=== PATIENT | female | born 1945 | race Caucasian/White ===

== ENCOUNTER 2024-04-09 03:43 | Emergency (ER) | payer MEDICARE, SELFPAY ==
[2024-04-09 04:08] VITALS: BP 179/91; PULSE 86; RESP 20; TEMP 36.6; O2SAT 97; BMI 29.0
[2024-04-09 04:36] VITALS: BP 179/91; PULSE 79; RESP 18; O2SAT 98
[2024-04-09 05:04] LABS: Bilirubin Urine Negative (Negative); Blood Urine 2+ (Negative); Glucose Urine UA Negative (Normal); Ketones Urine Negative (Negative); Leukocyte Esterase Urine 3+ (Negative); Nitrate Urine Negative (Negative); Protein Urine Trace (Negative); Specific Gravity, Urine 1.006 (1.005-1.030); Urine Appearance Turbid (CLEAR); Urine Color Yellow (Yellow)
[2024-04-09 05:09] LABS: Bacteria Urine 4+ /hpf; Hyaline Casts Urine 2.46 /lpf; Squamous Epithelial Cell Urine 21-50 /hpf (0-5); WBC Urine >100 /hpf (0-5)
--- NOTE | 2024-04-09 05:12 | XRR_ITS ---
PROCEDURE INFORMATION: Exam: XR Right Knee Exam date and time: 04/09/2024 5:19 AM Age: 78 years old Clinical indication: Right; Prior surgery; Surgery date: 6+ months; Surgery type: Tka; Patient HX: C/O RT knee and RT foot pain after her large size dog ran into her knee and stepped on her foot. ; Additional info: R knee inj TECHNIQUE: Imaging protocol: Radiologic exam of the right knee. Views: 3 views. COMPARISON: CR (LOW EXM, ) 04/09/2024 5:19 AM FINDINGS: Bones/joints: No fracture or dislocation is appreciated. There are postoperative changes status post right knee replacement. Components appear to be in anatomic alignment. Bony mineralization is normal. There is no evidence of a significant joint effusion. Soft tissues: Normal. XR/XR knee RT 3V* [id number] IMPRESSION: 1. Postoperative changes status post right knee replacement.
--- NOTE | 2024-04-09 05:12 | XRR_ITS ---
PROCEDURE INFORMATION: Exam: XR Right Foot Exam date and time: 04/09/2024 5:19 AM Age: 78 years old Clinical indication: Right; Patient HX: C/O RT knee and RT foot pain after her large size dog ran into her knee and stepped on her foot. ; Additional info: R foot inj and pain TECHNIQUE: Imaging protocol: Radiologic exam of the right foot. Views: 3 or more views. COMPARISON: CR XR knee RT 3V* [id number] 04/09/2024 5:19 AM FINDINGS: Bones/joints: No fracture or dislocation is appreciated. Joint spaces are relatively well preserved. Bony mineralization is slightly decreased. Soft tissues: No focal soft tissue swelling is identified. XR/XR foot RT min 3V* [id number] IMPRESSION: 1. No definite fracture identified.
[2024-04-09 05:20] LABS: UA Slide Review UA Slide Review Perf
[2024-04-09 05:31] LABS: Basophils % 0.9 %; Eosinophils # 0.1 10^3/uL (0.0-0.8); Eosinophils % 3.2 %; Hematocrit 41.3 % (36-47); Lymphocytes # 0.9 10^3/uL (0.8-4.8); Lymphocytes % 25.6 %; Mean Corpuscular HGB Conc 32.4 g/dL (30-55); Mean Corpuscular Hemoglobin 28.6 pg (27-33); Mean Corpuscular Volume 88.2 fl (85-98); Mean Platelet Volume 10.2 fL (7.4-10.4); Monocytes # 0.2 10^3/uL (0.2-0.9); Monocytes % 5.5 %; Neutrophils # 2.24 10^3/uL (1.8-7.7); Neutrophils % 64.2 %; Nucleated Red Blood Cells % 0 %; Platelet Count 67 10^3/cmm (157-399); Red Blood Count 4.68 10^6/uL (3.85-5.65); Red Cell Distribution Width 15.7 % (12.1-15.1); White Blood Count 3.48 10^3/uL (3.29-11.43)
[2024-04-09 05:50] LABS: Alanine Aminotransferase 18 U/L (0-33); Albumin Level 3.5 g/dL (3.5-5.2); Alkaline Phosphatase 115 U/L (35-105); Anion Gap 13.1 (5-19); Aspartate Amino Transferase 40 U/L (0-32); Blood Urea Nitrogen 6 mg/dL (8-23); Calcium 8.8 mg/dL (8.5-10.5); Carbon Dioxide 26 mmol/L (22-29); Chloride 105 mmol/L (98-107); Creatinine Clr Calc Pharmacy 60.4198; Glucose 124 mg/dL (65-115); Osmolality Calculated 291 mOsm/kg (285-295); Potassium 3.1 mmol/L (3.5-5.1); Sodium 141 mmol/L (136-145); Total Bilirubin 1.2 mg/dL (0.15-1.2); Total Protein 7.5 g/dL (6.6-8.7)
--- NOTE | 2024-04-09 05:52 | ED_ITS ---
HPI - Trauma 2 General: Chief Complaint: Trauma Stated Complaint: Foot Swollen\Bladder Infection\Gums Black Time Seen by Provider: 04/09/24 04:55 History of Present Illness: 78 year old female presenting after joel schumacher caught in the middle of her two dogs playing. Her right knee, which is status post arthroplasty, was swept out from under her period she complaints of medial knee pain, and of foot pain. She is not sure, but believes one of the dogs may have stepped on her foot. She also reports several scratches, one on her nose that is a couple of weeks old and one on her arm, that don't seem to want to heal, and continue to bleed when uncovered. She is on no medications. She has not seen a doctor recently. Related Data Previous Rx's Medication Instructions Recorded cefdinir 300 mg capsule 300 mg PO BID #14 caps 04/09/24 tramadol 50 mg tablet 50 mg PO Q8H PRN pain #10 tabs 04/09/24 Physical Exam 2 Const: COMMON NORMALS: no acute distress GENERAL APPEARANCE: cooperative and frail appearing (mildly); not ill appearing HENMT: COMMON NORMALS: normocephalic HEAD & SCALP: normocephalic NOSE: A bnormal external nose present (lesion to tip of nose. appears to be abrasion. potential pyogenic granuloma) Eye: COMMON NORMALS: Equal, round and reactive pupils present and EOMs intact bilaterally PUPIL: Yes Equal, round and reactive pupils present Neck/C-Spine: GENERAL: Yes trachea midline Chest: CHEST: Yes Symmetrical chest wall rise Resp: COMMON NORMALS: normal respiratory effort, No retractions and No use of accessory muscles Cardio: COMMON NORMALS: regular rate and regular rhythm RATE: regular rate RHYTHM: regular rhythm GI: INSPECTION: Yes abdominal wall ecchymosis (small. no fluctuance) Extremity: NARRATIVE EXTREMITY EXAM: Examination of the right lower extremity reveals tenderness over the MCL in the medial joint line. There is no significant knee joint effusion. There is pain with range of motion, which is intact. No deformity. The right foot reveals soft tissue swelling come up mild redness. No streaking. No deformity. Pulses are intact distally. Sensation is normal. Neuro: STEPH COMA SCALE: document GCS findings [place] coma scale eye opening: Spontaneous Steph coma scale verbal response: Orientated [place] coma scale motor response: Obey commands [place] coma scale total score: 15 S ENSORY EXAM: Yes extremities (intact) Psych: COMMON NORMALS: speech normal SPEECH: Yes normal speech Course 2 Vital Signs: Vital signs: Vital Signs Temperature 97.8 F 04/09/24 04:08 Pulse Rate 77 04/09/24 06:27 Respiratory Rate 16 04/09/24 06:27 Blood Pressure 145/82 04/09/24 06:27 Pulse Oximetry 98 04/09/24 06:27 Oxygen Delivery Me thod Room Air 04/09/24 04:36 MDM - Trauma Medical Decision Making This patient has a low normal white blood cell count. She has a platelet count of 67. She has no history of liver disease. Her potassium is 3.1. X-ray reveals no fracture. There is some soft tissue swelling. Knee X-ray does not reveal fracture or problem with prosthesis. She likely has a mild MCL sprain based on her point of tenderness. She'll be placed in a new immobilizer for no longer than five days. She was told to get a hinged sports knee brace following that. She does have a primary care physician they have not seen yet. She was encouraged to follow up with this person regarding both the knee injury and the thrombocytopenia, which is likely the cause of her skin lesions continuing to bleed. This will require further outpatient workup. She is encouraged to have a repeat CBC done later this coming week. Lab Data 04/09/24 05:23 04/09/24 05:23 Radiology Impressions Foot X-Ray 04/09/24 05:12 IMPRESSION: 1. No definite fracture identified. Knee X-Ray 04/09/24 05:12 IMPRESSION: 1. Postoperative changes status post right knee replacement. Laboratory Results WBC 3.48 10^3/uL (3.29-11.43) 04/09/24 05:23 RBC 4.68 10^6/uL (3.85-5.65) 04/09/24 05:23 Hgb 13.40 g/dL (11.27-16.99) 04/09/24 05:23 Hct 41.3 % (36-47) 04/09/24 05:23 MCV 88.2 fl (85-98) 04/09/24 05:23 MCH 28.6 pg (27-33) 04/09/24 05:23 MCHC 32.4 g/dL (30-55) 04/09/24 05:23 RDW 15.7 % (12.1-15.1) H 04/09/24 05:23 Plt Count 67 10^3/cmm (157-399) L 04/09/24 05:23 MPV 10.2 fL (7.4-10.4) 04/09/24 05:23 Neut % (Auto) 64.2 % 04/09/24 05:23 Lymph % (Auto) 25.6 % 04/09/24 05:23 [place] % (Auto) 5.5 % 04/09/24 05:23 Eos % (Auto) 3.2 % 04/09/24 05:23 Baso % (Auto) 0.9 % 04/09/24 05:23 Neut # (Auto) 2.24 10^3/uL (1.8-7.7) 04/09/24 05:23 Lymph # (Auto) 0.9 10^3/uL (0.8-4.8) 04/09/24 05:23 [place] # (Auto) 0.2 10^3/uL (0.2-0.9) 04/09/24 05:23 Eos # (Auto) 0.1 10^3/uL (0.0-0.8) 04/09/24 05:23 Baso # (Auto) 0.0 10^3/uL (0.0-0.1) 04/09/24 05:23 Nucleated RBC % (auto) 0 % 04/09/24 05:23 Nucleated RBCs # 0.0 /100WBC 04/09/24 05:23 Sodium 141 mmol/L (136-145) 04/09/24 05:23 Potassium 3.1 mmol/L (3.5-5.1) L 04/09/24 05:23 Chloride 105 mmol/L (98-107) 04/09/24 05:23 Carbon Dioxide 26 mmol/L (22-29) 04/09/24 05:23 Anion Gap 13.1 (5-19) 04/09/24 05:23 BUN 6 mg/dL (8-23) L 04/09/24 05:23 Creatinine 0.8 mg/dL (0.5-0.9) 04/09/24 05:23 GFR Calculation Not Reportable 04/09/24 05:23 Glucose 124 mg/dL (65-115) H 04/09/24 05:23 Calculated Osmolality 291 mOsm/kg (285-295) 04/09/24 05:23 Calcium 8.8 mg/dL (8.5-10.5) 04/09/24 05:23 Total Bilirubin 1.2 mg/dL (0.15-1.2) 04/09/24 05:23 AST 40 U/L (0-32) H 04/09/24 05:23 ALT 18 U/L (0-33) 04/09/24 05:23 Alkaline Phosphatase 115 U/L (35-105) H 04/09/24 05:23 Total Protein 7.5 g/dL (6.6-8.7) 04/09/24 05:23 Albumin 3.5 g/dL (3.5-5.2) 04/09/24 05:23 Globulin 4.0 g/dL (1.3-4.6) 04/09/24 05:23 Urine Color Yellow (Yellow) 04/09/24 04:53 Urine Appearance Turbid (CLEAR) A 04/09/24 04:53 Urine pH 6.0 (5-7) 04/09/24 04:53 Ur Specific [place] 1.006 (1.005-1.030) 04/09/24 04:53 Urine Protein Trace (Negative) A 04/09/24 04:53 Urine Glucose (UA) Negative (Normal) 04/09/24 04:53 Urine Ketones Negative (Negative) 04/09/24 04:53 Urine Blood 2+ (Negative) A 04/09/24 04:53 Urine Nitrate Negative (Negative) 04/09/24 04:53 Urine Bilirubin Negative (Negative) 04/09/24 04:53 Urine Urobilinogen 1.0 mg/dL (Negative) 04/09/24 04:53 Ur Leukocyte Esterase 3+ (Negative) A 04/09/24 04:53 Urine RBC 3-5 /hpf (0-2) 04/09/24 04:53 Urine WBC >100 /hpf (0-5) H 04/09/24 04:53 Ur Squamous Epith Cells 21-50 /hpf (0-5) 04/09/24 04:53 Amorphous Sediment Not Reportable 04/09/24 04:53 Urine Bacteria 4+ /hpf (NONE) H 04/09/24 04:53 Hyaline Casts 2.46 /lpf 04/09/24 04:53 All radiology interpretation(s) finalized by discharge Discharge Plan Discharge Patient Disposition: Home Clinical Impression: MCL sprain of right knee, Contusion of foot, right, Acute UTI, Thrombocytopenia Condition: Stable Prescriptions: New cefdinir 300 mg capsule 300 mg PO BID Qty: 14 0RF tramadol 50 mg tablet 50 mg PO Q8H PRN (Reason: pain) Qty: 10 0RF Discharge Orders: Discharge ED (Routine); Ordered 04/09/24 Ordered By: Marciano Harris Referrals: Loren Aguilera MD [Staff Physician] - 4-7 days Patient Instructions: Knee Sprain (ED), Contusion in Adults (ED), Thrombocytopenia (ED), Urinary Tract Infection in Older Adults (ED), Opioid Safety, Pain Management Activity Restrictions/Additional Instructions: Antibiotics as directed for urinary tract infection. Your platelet count (clotting cell) count is low. This blood test needs to be repeated in a week's time or so to ensure it is improving. If not, more outpatient tests may be needed. If your right knee is feeling unstable, wear the knee immobilizer for up to 5 days. You should be seen for follow-up. A hinged knee brace following this should allow movement while the ligament heals. Return for fever despite 2-3 doses of antibiotics, vomiting liquids or medications, mental status changes, worsening pain, any other concerning symptoms. Coding Level of Care Code ED Well Cleaner for Ariane Ziegler
[2024-04-09] MEDS: cefdinir 300 MG CAPSULE PO (06:19)
[2024-04-09 06:27] VITALS: BP 145/82; PULSE 77; RESP 16; O2SAT 98
== END 2024-04-09 06:21 | disposition home or self-care (01) ==
PROVIDERS: Emergency Provider Emergency Medicine
DX: S83.411A Sprain of medial collateral ligament of right knee, initial encounter (principal); S90.31XA Contusion of right foot, initial encounter; N39.0 Urinary tract infection, site not specified; D69.6 Thrombocytopenia, unspecified; Z96.651 Presence of right artificial knee joint; W54.1XXA Struck by dog, initial encounter
CPT/HCPCS: 29530; 36415; 73562; 73630; 80053; 81001; 85025; 99284

== ENCOUNTER 2024-04-15 11:01 | Emergency (ER) | payer MEDICARE, SELFPAY ==
[2024-04-15 11:11] VITALS: BP 177/108; PULSE 80; RESP 16; TEMP 36.9; O2SAT 97; BMI 29.0
--- NOTE | 2024-04-15 11:12 | XRR_ITS ---
PROCEDURE INFORMATION: Exam: XR Right Foot Exam date and time: 04/15/2024 11:22 AM Age: 78 years old Clinical indication: Pain; Patient HX: PT presents with redness and swelling to right foot. Patient has bruising and redness to dorsal side of right foot. Patient denies mechanism of injury. Patient states it has progressively worse over the last week. Patient states they are working on their home and areas where critters can come in. patient denies fever. Patent airway, unlabored respirations, and appropriate color. ; Additional info: Pain/swelling TECHNIQUE: Imaging protocol: Radiologic exam of the right foot. Views: 3 or more views. Total images: 3 COMPARISON: CR (LOW EXM, ) 04/09/2024 5:19 AM FINDINGS: Bones/joints: Osteopenia no acute fracture or dislocation evident. Posterior calcaneal spurring at the attachment of the Achilles tendon. Benign-appearing periosteal reaction along the ulnar aspect of the shaft of the right 4th metatarsal. Soft tissues: Soft tissue swelling on the dorsum of the mid and forefoot. XR/XR foot RT min 3V* [id number] IMPRESSION: 1. No acute osseous abnormality identified.
--- NOTE | 2024-04-15 11:40 | ED_ITS ---
HPI - Extremity Problem 2 General: Chief complaint: Extremity Problem,Nontraumatic Stated complaint: right foot swollen Time Seen by Provider: 04/15/24 11:12 History of Present Illness: 78-year-old female presents with redness and irritation between third and fourth toes extending proximally on the dorsum of the right foot. She was seen 6 days ago with some redness and slight swelling in that area x-ray was unremarkable there was only swelling at that time and no redness. Patient states she pulled out something like a sliver from between her toes central to where this began. It is not had any drainage. Associated symptoms: Deny chest pain, fever(s) or rash Related Data Previous Rx's Medication Instructions Recorded cefdinir 300 mg capsule 300 mg PO BID #14 caps 04/09/24 clindamycin HCl 300 mg capsule 300 mg PO TID 7 days #21 caps 04/18/24 Allergies Allergy/AdvReac Type Severity Reaction Status Date / Time tomato Allergy ALGY-Anaphy Verified 04/20/24 11:21 laxis Review of Systems 2 Const: Denies: fever(s) or chills Card: Denies: chest pain Resp: Denies: dyspnea GI: Denies: abdominal pain : Denies: dysuria, urinary frequency or urinary urgency Musc: Denies: neck pain or back pain Skin/Breast: Denies: rash PFSH ED 2 PFSH: Social History Smoking and tobacco/nicotine status: never used tobacco/nicotine Physical Exam 2 Const: GENERAL APPEARANCE: cooperative ORIENTATION/CONSCIOUSNESS: Yes awake, Yes oriented to person, Yes oriented to place and Yes oriented to time HENMT: COMMON NORMALS: normocephalic, atraumatic and hearing grossly normal bilaterally HEAD & SCALP: normocephalic and atraumatic Resp: COMMON NORMALS: normal respiratory effort, No retractions, No use of accessory muscles and clear to auscultation bilaterally AUSCULTATION: clear to auscultation bilaterally Cardio: COMMON NORMALS: regular rate, regular rhythm and No murmurs present (Cardio) RATE: regular rate RHYTHM: regular rhythm GI: COMMON NORMALS: Soft to palpation and No hepatosplenomegaly present A USCULTATION: Yes normoactive bowel sounds PALPATION: Yes Soft to palpation, No Tenderness to palpation present (GI), No Guarding due to palpation present (GI) and Yes No hepatosplenomegaly present Extremity: COMMON NORMALS: normal to inspection, capillary refill normal, no clubbing, cyanosis or edema, no calf tenderness and no pedal edema Neuro: SENSORIUM/ORIENTATION: Yes oriented to person, Yes oriented to place and Yes oriented to time Skin: COMMON NORMALS: no rashes or lesions noted GENERAL SKIN EXAM: no rashes or lesions noted Course 2 Vital Signs: Vital signs: Vital Signs Temperature 98.5 F 04/15/24 11:11 Pulse Rate 68 04/15/24 12:49 Respiratory Rate 16 04/15/24 11:11 Blood Pressure 162/75 04/15/24 12:49 Pulse Oximetry 99 04/15/24 12:49 Oxygen Delivery Me thod Room Air 04/15/24 11:11 MDM - Extremity (Nontraumatic) Medical Decision Making Patient has mild cellulitis on dorsum of foot starting oral antibiotics elevate moist heat follow-up with primary care and return if has worsening symptoms Lab Data 04/15/24 11:56 04/15/24 11:56 Radiology Impressions Foot X-Ray 04/15/24 11:12 IMPRESSION: 1. No acute osseous abnormality identified. Laboratory Results WBC 2.98 10^3/uL (3.29-11.43) L 04/15/24 11:56 RBC 4.60 10^6/uL (3.85-5.65) 04/15/24 11:56 Hgb 13.50 g/dL (11.27-16.99) 04/15/24 11:56 Hct 40.8 % (36-47) 04/15/24 11:56 MCV 88.7 fl (85-98) 04/15/24 11:56 MCH 29.3 pg (27-33) 04/15/24 11:56 MCHC 33.1 g/dL (30-55) 04/15/24 11:56 RDW 15.4 % (12.1-15.1) H 04/15/24 11:56 Plt Count 71 10^3/cmm (157-399) L 04/15/24 11:56 MPV 9.6 fL (7.4-10.4) 04/15/24 11:56 Neut % (Auto) 62.1 % 04/15/24 11:56 Lymph % (Auto) 28.2 % 04/15/24 11:56 [place] % (Auto) 5.0 % 04/15/24 11:56 Eos % (Auto) 3.0 % 04/15/24 11:56 Baso % (Auto) 1.0 % 04/15/24 11:56 Neut # (Auto) 1.85 10^3/uL (1.8-7.7) 04/15/24 11:56 Lymph # (Auto) 0.8 10^3/uL (0.8-4.8) 04/15/24 11:56 [place] # (Auto) 0.2 10^3/uL (0.2-0.9) 04/15/24 11:56 Eos # (Auto) 0.1 10^3/uL (0.0-0.8) 04/15/24 11:56 Baso # (Auto) 0.0 10^3/uL (0.0-0.1) 04/15/24 11:56 Nucleated RBC % (auto) 0 % 04/15/24 11:56 Nucleated RBCs # 0.0 /100WBC 04/15/24 11:56 Sodium 142 mmol/L (136-145) 04/15/24 11:56 Potassium 3.1 mmol/L (3.5-5.1) L 04/15/24 11:56 Chloride 105 mmol/L (98-107) 04/15/24 11:56 Carbon Dioxide 27 mmol/L (22-29) 04/15/24 11:56 Anion Gap 13.1 (5-19) 04/15/24 11:56 BUN 6 mg/dL (8-23) L 04/15/24 11:56 Creatinine 0.8 mg/dL (0.5-0.9) 04/15/24 11:56 GFR Calculation Not Reportable 04/15/24 11:56 Glucose 123 mg/dL (65-115) H 04/15/24 11:56 Calculated Osmolality 293 mOsm/kg (285-295) 04/15/24 11:56 Calcium 8.8 mg/dL (8.5-10.5) 04/15/24 11:56 Total Bilirubin 1.3 mg/dL (0.15-1.2) H 04/15/24 11:56 AST 36 U/L (0-32) H 04/15/24 11:56 ALT 15 U/L (0-33) 04/15/24 11:56 Alkaline Phosphatase 125 U/L (35-105) H 04/15/24 11:56 Total Protein 7.6 g/dL (6.6-8.7) 04/15/24 11:56 Albumin 3.5 g/dL (3.5-5.2) 04/15/24 11:56 Globulin 4.1 g/dL (1.3-4.6) 04/15/24 11:56 All radiology interpretation(s) finalized by discharge Discharge Plan Discharge Patient Disposition: Home Clinical Impression: Cellulitis Qualifiers: Site of cellulitis: extremity Site of cellulitis of extremity: lower extremity Laterality: right Qualified Code(s): L03.115 - Cellulitis of right lower limb Condition: Stable Prescriptions: No Action clindamycin HCl 300 mg capsule 300 mg PO TID 7 Days Qty: 21 0RF cefdinir 300 mg capsule 300 mg PO BID Qty: 14 0RF Discharge Orders: Discharge ED (Routine); Ordered 04/15/24 Ordered By: Miguel Adkins Referrals: Loren Aguilera MD [Primary Care Provider] - Discharge Diet: Usual diet Discharge Activity: Increase activity as tolerated Patient Instructions: Opioid Safety, Pain Management Activity Restrictions/Additional Instructions: Thank you for choosing [facility] for your healthcare needs today. It is very important that you follow up as instructed or that you return to the Emergency Department should you have concerns or if your condition changes or worsens in any way. You are seen emergency room for redness in your foot. Your white count is slightly low which is similar to what has been in the past. The area of concern on your foot appears to be a mild cellulitis. Recommend you start doxycycline 1 pill twice a day for 7 days. Recheck if it is worsening. Coding Level of Care Code ED Cheese Processor for Ariane Ziegler
[2024-04-15 12:02] LABS: Eosinophils # 0.1 10^3/uL (0.0-0.8); Hematocrit 40.8 % (36-47); Lymphocytes # 0.8 10^3/uL (0.8-4.8); Lymphocytes % 28.2 %; Mean Corpuscular HGB Conc 33.1 g/dL (30-55); Mean Corpuscular Hemoglobin 29.3 pg (27-33); Mean Corpuscular Volume 88.7 fl (85-98); Mean Platelet Volume 9.6 fL (7.4-10.4); Monocytes # 0.2 10^3/uL (0.2-0.9); Neutrophils # 1.85 10^3/uL (1.8-7.7); Neutrophils % 62.1 %; Nucleated Red Blood Cells % 0 %; Platelet Count 71 10^3/cmm (157-399); Red Cell Distribution Width 15.4 % (12.1-15.1); White Blood Count 2.98 10^3/uL (3.29-11.43)
[2024-04-15 12:16] VITALS: PULSE 71; O2SAT 99
[2024-04-15 12:22] LABS: Alanine Aminotransferase 15 U/L (0-33); Albumin Level 3.5 g/dL (3.5-5.2); Alkaline Phosphatase 125 U/L (35-105); Anion Gap 13.1 (5-19); Aspartate Amino Transferase 36 U/L (0-32); Blood Urea Nitrogen 6 mg/dL (8-23); Calcium 8.8 mg/dL (8.5-10.5); Carbon Dioxide 27 mmol/L (22-29); Chloride 105 mmol/L (98-107); Creatinine Clr Calc Pharmacy 60.4198; Globulin 4.1 g/dL (1.3-4.6); Glucose 123 mg/dL (65-115); Osmolality Calculated 293 mOsm/kg (285-295); Potassium 3.1 mmol/L (3.5-5.1); Sodium 142 mmol/L (136-145); Total Bilirubin 1.3 mg/dL (0.15-1.2); Total Protein 7.6 g/dL (6.6-8.7)
[2024-04-15 12:49] VITALS: BP 162/75; PULSE 68; O2SAT 98; O2SAT 99
== END 2024-04-15 12:50 | disposition home or self-care (01) ==
PROVIDERS: Emergency Provider Family Medicine; PCP Family Medicine
DX: L03.115 Cellulitis of right lower limb (principal)
CPT/HCPCS: 36415; 73630; 80053; 85025; 99284

== ENCOUNTER → 2024-05-10 14:56 | Outpatient (BNVA) | payer MEDICARE, SELFPAY | DX: Z76.89 Persons encountering health services in other specified circumstances (principal) | CPT/HCPCS: 80053; 85025 ==

== ENCOUNTER → 2024-05-17 08:47 | Outpatient (BNVA) | payer MEDICARE, SELFPAY | PROVIDERS: Visit Provider Thoracic Surgery (Cardiothoracic Vascular Surgery) | DX: S01.21XD Laceration without foreign body of nose, subsequent encounter (principal); W20.8XXD Other cause of strike by thrown, projected or falling object, subsequent encounter; I96 Gangrene, not elsewhere classified; L97.511 Non-pressure chronic ulcer of other part of right foot limited to breakdown of skin | CPT/HCPCS: 97597; 99213; A6021 ==

== ENCOUNTER → 2024-06-16 11:01 | Outpatient (BNVA) | payer MEDICARE, SELFPAY | DX: S81.801A Unspecified open wound, right lower leg, initial encounter (principal) | CPT/HCPCS: 85025 ==

== ENCOUNTER → 2024-07-14 11:48 | Outpatient (BNVA) | payer MEDICARE, SELFPAY | PROVIDERS: Visit Provider Nurse Practitioner Family | DX: L98.9 Disorder of the skin and subcutaneous tissue, unspecified (principal) | CPT/HCPCS: 87070; 87077; 87186 ==

== ENCOUNTER 2024-07-31 12:06 | Oncology outpatient (recurring) (ONCR) | payer MEDICARE, SELFPAY ==
[2024-07-31 13:25] LABS: Basophils % 0.5 %; Eosinophils # 0.1 10^3/uL (0.0-0.8); Eosinophils % 3.3 %; Hematocrit 38.3 % (36-47); Lymphocytes # 0.6 10^3/uL (0.8-4.8); Lymphocytes % 29.3 %; Mean Corpuscular HGB Conc 32.4 g/dL (30-55); Mean Corpuscular Hemoglobin 28.8 pg (27-33); Mean Corpuscular Volume 88.9 fl (85-98); Mean Platelet Volume 9.6 fL (7.4-10.4); Monocytes # 0.1 10^3/uL (0.2-0.9); Monocytes % 3.7 %; Neutrophils # 1.35 10^3/uL (1.8-7.7); Neutrophils % 62.7 %; Nucleated Red Blood Cells % 0 %; Platelet Count 72 10^3/cmm (157-399); Red Blood Count 4.31 10^6/uL (3.85-5.65); Red Cell Distribution Width 15.1 % (12.1-15.1); White Blood Count 2.15 10^3/uL (3.29-11.43)
[2024-07-31 14:05] LABS: Alanine Aminotransferase 17 U/L (0-33); Albumin Level 3.5 g/dL (3.5-5.2); Alkaline Phosphatase 105 U/L (35-105); Anion Gap 10.4 (5-19); Aspartate Amino Transferase 47 U/L (0-32); Blood Urea Nitrogen 9 mg/dL (8-23); Calcium 9.2 mg/dL (8.5-10.5); Carbon Dioxide 28 mmol/L (22-29); Chloride 107 mmol/L (98-107); Creatinine Clr Calc Pharmacy 55.6003; Globulin 4.2 g/dL (1.3-4.6); Glucose 141 mg/dL (65-115); Osmolality Calculated 295 mOsm/kg (285-295); Potassium 3.4 mmol/L (3.5-5.1); Sodium 142 mmol/L (136-145); Thyroid Stimulating Hormone 2.17 uIU/mL (0.27-4.20); Total Bilirubin 1.3 mg/dL (0.15-1.2); Total Protein 7.7 g/dL (6.6-8.7); Vitamin B12 468 pg/mL (232-1245)
[2024-07-31 14:25] LABS: Folate Level 6.2 ng/mL (4.8-37.3)
[2024-07-31 14:26] LABS: Hepatitis A Antibody IgM Non-Reactive (Nonreactive); Hepatitis B Core AB, Total Non-Reactive (Nonreactive); Hepatitis B Surface AB < 3.5 (11.5-1000); Hepatitis B Surface Antigen Non-Reactive (Nonreactive); Hepatitis C Virus Antibody Non-Reactive (Nonreactive)
[2024-08-03 11:45] LABS: ALBUMIN 3.3 g/dL (3.8-4.8); ALPHA 1 GLOBULIN 0.3 g/dL (0.2-0.3); ALPHA 2 GLOBULIN 0.5 g/dL (0.5-0.9); BETA 1 GLOBULIN 0.4 g/dL (0.4-0.6); BETA 2 GLOBULIN 0.5 g/dL (0.2-0.5); GAMMA GLOBULIN 2.1 g/dL (0.8-1.7)
== END 2024-08-08 23:59 | disposition home or self-care (01) ==
LOC: ONCMED 12:07
PROVIDERS: Visit Provider Internal Medicine Medical Oncology
DX: D69.6 Thrombocytopenia, unspecified (principal); R53.83 Other fatigue; D70.9 Neutropenia, unspecified; C44.311 Basal cell carcinoma of skin of nose; T81.89XA Other complications of procedures, not elsewhere classified, initial encounter; X58.XXXA Exposure to other specified factors, initial encounter
CPT/HCPCS: 36415; 80053; 82607; 82746; 84155; 84165; 84443; 85025; 86334; 86705; 86706; 86709; 86803; 87340; 99205; 99213

== ENCOUNTER → 2024-08-07 10:41 | Outpatient (BNVA) | payer MEDICARE, SELFPAY | PROVIDERS: Visit Provider Nurse Practitioner Family | DX: C44.311 Basal cell carcinoma of skin of nose (principal); T81.89XA Other complications of procedures, not elsewhere classified, initial encounter; X58.XXXA Exposure to other specified factors, initial encounter; D48.5 Neoplasm of uncertain behavior of skin | CPT/HCPCS: 11102; 99213 ==

== ENCOUNTER 2024-08-08 09:50 | Outpatient (CLI) | payer MEDICARE, SELFPAY ==
--- NOTE | 2024-08-08 10:00 | USR_ITS ---
PROCEDURE INFORMATION: Exam: US Abdomen Complete Exam date and time: 08/08/2024 10:06 AM Age: 79 years old Clinical indication: Condition or disease; Other: Neutropenia, thrombocytopenia TECHNIQUE: Imaging protocol: Real-time ultrasound of the abdomen with image documentation. Complete exam. COMPARISON: No relevant prior studies available. FINDINGS: Liver: Coarsened hepatic echotexture with mildly nodular contour suggesting presence of hepatic cirrhosis. Gallbladder: Cholelithiasis. Gallbladder wall mildly thickened at 4 mm, nonspecific given presence of the liver pathology. No sonographic Ford's sign. Biliary ducts: Common bile duct not well visualized. No intrahepatic biliary dilatation seen. Pancreas: Visualized pancreas is unremarkable. Right kidney: Right kidney measures 9.2 cm in length. No calculus, solid mass, or obstruction. Renal echogenicity is within normal limits. Left kidney: Normal. No mass. No hydronephrosis. Spleen: Spleen enlarged measuring up to 16 cm in length. Aorta: Normal. No aneurysm. Inferior vena cava: Normal. Portal venous: Main portal vein demonstrates normal direction of flow and patency. US/US abdomen complete* [id number] IMPRESSION: 1. Cholelithiasis without evidence of acute cholecystitis. 2. Findings suggestive of hepatic cirrhosis. Presence of splenomegaly may indicate portal hypertension.
== END 2024-08-08 09:51 | disposition home or self-care (01) ==
LOC: RAD 09:52
PROVIDERS: Visit Provider Internal Medicine Medical Oncology
DX: D69.6 Thrombocytopenia, unspecified (principal); D70.9 Neutropenia, unspecified; K80.20 Calculus of gallbladder without cholecystitis without obstruction; R16.1 Splenomegaly, not elsewhere classified; R93.2 Abnormal findings on diagnostic imaging of liver and biliary tract; R93.89 Abnormal findings on diagnostic imaging of other specified body structures
CPT/HCPCS: 76700

== ENCOUNTER 2024-09-01 09:10 | Outpatient (CLI) | payer MEDICARE, SELFPAY ==
--- NOTE | 2024-09-01 09:16 | XR_ITS ---
WS: [id number] Right foot, AP and lateral views, 09/01/2024 Clinical Data: basal cell carcinoma of skin, unspecified Comparison: Right foot, 04/15/2024 Findings: No fractures or dislocations are seen. No bone destruction or erosion is noted. There is a bunion at the head of the right first metatarsal. There is benign periosteal reaction on the lateral aspect of the midshaft of the right fourth metatarsal unchanged. XR/XR [place] RT 2V [id number] Impression: Bunion of the head of the right first metatarsal.
== END 2024-09-01 09:11 | disposition home or self-care (01) ==
LOC: RAD 09:13
PROVIDERS: PCP Nurse Practitioner Family; Visit Provider Dermatology
DX: M86.68 Other chronic osteomyelitis, other site (principal); M21.611 Bunion of right foot; R93.6 Abnormal findings on diagnostic imaging of limbs
CPT/HCPCS: 73620; 87070; 87075; 87205

== ENCOUNTER 2024-09-12 09:19 | Oncology outpatient (recurring) (ONCR) | payer MEDICARE, SELFPAY ==
--- NOTE | 2024-09-12 09:30 | MR_ITS ---
WS: [id number] MRI/MRCP OF THE ABDOMEN WITHOUT GADOLINIUM ENHANCEMENT TECHNIQUE: Coronal T2 Fase BH, Axial T2 Fase BH, Axial T2 FS BH, Zxial 3D Jimenez BH, Axial DWI BH, 2D MRCP Radial BH, 3D MRCP (Resp), and Axial 3D Dyn BH Post sequences. CLINICAL INFORMATION: liver cirrhosis COMPARISON: None. FINDINGS: Cholelithiasis. No gallbladder wall thickening or pericholecystic fluid. Normal common bile duct. Normal pancreatic head. No hydronephrosis in either kidney. Normal caliber abdominal aorta. Tiny trace of perihepatic fluid. Slight nodular contour to the liver capsule. Small esophageal hiatal hernia. Mild hepatomegaly with enlargement of the RIGHT hepatic lobe. Tiny hepatic cyst in the RIGHT hepatic lobe measuring 5.6 mm. Splenomegaly with loss of the normal splenic contour measuring approximately 14 cm. Some images in the upper abdomen are degraded by motion. Portal-systemic collaterals visualized in the upper abdomen supportive of portal venous hypertension MR/MR abdomen wo/w con* [id number] Impression: 1. Slight nodular contour to the liver can be seen with cirrhosis. Associated splenomegaly with loss of the normal splenic contour. Recommend correlation adam er function tests. 2. In addition, portosystemic collaterals visualized in the upper abdomen supp ortive of portal venous hypertension. Splenorenal and splenogastric varicositie s. 3. Tiny cyst in the RIGHT hepatic lobe. 4. Small esophageal hiatal hernia. 5. Cholelithiasis. Normal common bile duct. 6. No other acute findings.
[2024-09-12] MEDS: gadobenate dimeglumine 20 mL vial 16 ML IV (10:05)
== END 2024-10-06 23:59 | disposition home or self-care (01) ==
PROVIDERS: PCP Nurse Practitioner Family; Visit Provider Internal Medicine Medical Oncology
DX: K74.60 Unspecified cirrhosis of liver (principal); D69.6 Thrombocytopenia, unspecified; K80.20 Calculus of gallbladder without cholecystitis without obstruction; K44.9 Diaphragmatic hernia without obstruction or gangrene; K76.89 Other specified diseases of liver; R16.1 Splenomegaly, not elsewhere classified; I86.8 Varicose veins of other specified sites
CPT/HCPCS: 74183

== ENCOUNTER → 2024-09-18 11:16 | Outpatient (BNVA) | payer MEDICARE, SELFPAY | PROVIDERS: PCP Nurse Practitioner Family; Visit Provider Dermatology | DX: L08.9 Local infection of the skin and subcutaneous tissue, unspecified (principal); K64.4 Residual hemorrhoidal skin tags | CPT/HCPCS: 99214 ==

== ENCOUNTER → 2024-09-20 14:20 | Outpatient (BNVA) | payer MEDICARE, SELFPAY | PROVIDERS: PCP Nurse Practitioner Family; Visit Provider Dermatology | DX: L08.9 Local infection of the skin and subcutaneous tissue, unspecified (principal) | CPT/HCPCS: 11104; 11622; 12042; 87015; 87070; 87102; 87116; 87176; 87205; 87206; 87801 ==

== ENCOUNTER → 2024-10-04 11:27 | Outpatient (BNVA) | payer MEDICARE, SELFPAY | PROVIDERS: PCP Nurse Practitioner Family; Visit Provider Dermatology | DX: L72.0 Epidermal cyst (principal) | CPT/HCPCS: 99213 ==

== ENCOUNTER 2024-10-10 11:58 | Outpatient (CLI) | payer MEDICARE, SELFPAY ==
--- NOTE | 2024-10-10 12:07 | MR_ITS ---
WS: [id number] EXAMINATION: MR foot RT wo/w con [id number] ORDER DATE: 10/10/2024 12:09 PM HISTORY: SUBACUTE OSTEOMYELITIS,R ANKLE FOOT TECHNIQUE: Sagittal T1, sagittal STIR, coronal PD, coronal T2, axial T1, axial T2, and axial PD imaging with fat saturation technique. Post gadolinium imaging includes axial T1, coronal T1, and sagittal T1 with fat saturation technique. FINDINGS: Diffuse soft tissue edema with enhancing superficial and deep soft tissues compatible with cellulitis. This is more prominent involving the dorsal midfoot with associated skin thickening. Edema extends into the intertarsal soft tissues. No evidence of drainable abscess or fluid collection. No evidence of osteomyelitis. Preservation of the normal T1 fatty bone marrow signal. Soft tissue edema enhancement worse involving the dorsal soft tissues third through fifth distal metatarsals and proximal phalanges. This is most prominent involving the third and fourth proximal phalanges extending along the extensor tendon sheaths. Normal navicular. Normal cuboid. Cuneiforms appear normal. No other acute findings. Bunion deformity. Degenerative arthritis first MTP. Narrowing of the DIP joints. Achilles calcaneal spurring. Osteopenia. MR/MR foot RT wo/w con [id number] IMPRESSION: 1. Cellulitis worse involving the dorsal soft tissues extending into the inter tarsal deep soft tissues. Edema and enhancement worse involving the third throu gh fifth intertarsal and phalangeal soft tissues 2. Soft tissue edema and enhancement worse involving the third and fourth prox imal phalanges extending along the dorsal tendon sheaths. 3. No evidence of drainable abscess or fluid collection. 4. No evidence of osteomyelitis. 5. Bunion deformity.
[2024-10-10] MEDS: gadobenate dimeglumine 20 mL vial 17 ML IV (12:50)
== END 2024-10-10 11:59 | disposition home or self-care (01) ==
PROVIDERS: PCP Nurse Practitioner Family; Visit Provider Dermatology
DX: M86.271 Subacute osteomyelitis, right ankle and foot (principal); L03.115 Cellulitis of right lower limb; M21.611 Bunion of right foot; R23.4 Changes in skin texture; M19.071 Primary osteoarthritis, right ankle and foot; R93.6 Abnormal findings on diagnostic imaging of limbs; M77.31 Calcaneal spur, right foot; M85.80 Other specified disorders of bone density and structure, unspecified site
CPT/HCPCS: 73720

== ENCOUNTER 2024-10-10 13:14 | Oncology outpatient (recurring) (ONCR) | payer MEDICARE, SELFPAY ==
--- NOTE | 2024-10-10 13:44 | N.ONRAD NP_ITS ---
Radiation Oncology New Patient Visit Patient: Chelsey Good MR#: [id number] : 1945> Age: 79> Sex: Female> Dictated by: Robe Robles Date of Service: 10/10/2024 Referring Physician(s) : Diagnosis: Radiotherapy to date: Summary > No prior radiation therapy. 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 Surgical History: Family History: Social History: Smoking and tobacco/nicotine status: never used tobacco/nicotine Current Complaints / Review of Systems: . Vital Signs: Performed on 10/10/2024 1:39 PM BMI - 27.503 kg/m2 (high), Height - 66 in, Weight - 170.4 lbs, Temperature - 97.7 f, Pulse - 101 /min (high), Respiration - 18 /min, O2 Sat - 97 %, Pain - 10, Fatigue - 0 and BP - 162/ 98 mm(hg)(high). Physical Exam: Performance Status: Pathology: Impression: Plan: Signed by: 10/10/2024 1:43:11 PM <<Signature on File>> Time spent with patient: CPT Code: * CPT Code: *
== END 2024-11-06 23:59 | disposition home or self-care (01) ==
PROVIDERS: PCP Nurse Practitioner Family; Visit Provider Radiology Radiation Oncology
DX: K74.60 Unspecified cirrhosis of liver (principal); D69.6 Thrombocytopenia, unspecified; K80.20 Calculus of gallbladder without cholecystitis without obstruction; K44.9 Diaphragmatic hernia without obstruction or gangrene; K76.89 Other specified diseases of liver; R16.1 Splenomegaly, not elsewhere classified; I86.8 Varicose veins of other specified sites

== ENCOUNTER → 2024-10-25 11:00 | Outpatient (BNVA) | payer MEDICARE, SELFPAY | PROVIDERS: PCP Nurse Practitioner Family; Visit Provider Dermatology | DX: L72.0 Epidermal cyst (principal); C44.311 Basal cell carcinoma of skin of nose; C44.319 Basal cell carcinoma of skin of other parts of face | CPT/HCPCS: 99214 ==

== ENCOUNTER → 2024-11-01 12:52 | Outpatient (BNVA) | payer MEDICARE, SELFPAY | PROVIDERS: PCP Nurse Practitioner Family; Visit Provider Obstetrics & Gynecology | DX: R30.0 Dysuria (principal) | CPT/HCPCS: 84315 ==

== ENCOUNTER → 2024-11-14 10:50 | Outpatient (BNVA) | payer MEDICARE, SELFPAY | PROVIDERS: PCP Nurse Practitioner Family; Visit Provider Obstetrics & Gynecology | DX: N81.10 Cystocele, unspecified (principal) | CPT/HCPCS: 76857 ==

== ENCOUNTER 2024-11-29 10:16 | Oncology outpatient (recurring) (ONCR) | payer MEDICARE, SELFPAY ==
--- NOTE | 2024-11-21 11:19 | ONCRAD TMN_ITS ---
Radiation Oncology Weekly Treatment Management Patient: Florentino Marmolejo MR#: [id number] : 1945> Attending Physician: Robe Robles Date of Service: 11/21/2024 Referring Physician(s) : Diagnosis: C44.01 - Basal cell carcinoma of skin of lip, Diagnosed 08/08/2024 (Active) C44.311 - Basal cell carcinoma of skin of nose, Diagnosed 08/08/2024 (Active) C44.319 - Basal cell carcinoma of skin of other parts of face, Diagnosed 08/08/2024 (Active) Radiotherapy to date: Course: Nose 2024, Treatment Site: Nose 6E 40Gy, Ref. ID: [id number], Energy: 6E, Dose/Fx (cGy): 400, #Fx: , Dose Correction (cGy): 0, Total Dose Delivered (cGy): 1,600, Start Date: 11/16/2024, Elapsed Days: 5 Reason for visit: The patient is being seen today as part of their regularly scheduled weekly on treatment visits to assess for acute toxicities from radiotherapy. Review of Systems: Consult reviewed treating nasal tip at this time Vital Signs: Performed on 11/21/2024 11:01 AM BMI - 28.601 kg/m2 (high), Height - 66 in, Weight - 177.2 lbs, Temperature - 97.7 f, Pulse - 88 /min, Respiration - 18 /min, O2 Sat - 98 %, Pain - 0, Fatigue - 0 and BP - 180/ 97 mm(hg)(high). Physical Exam: AAOx3. Crusting lesion of the nasal tip noted with some mild bleeding. Imaging: Radiation therapy imaging related to accurate target localization (i.e. KV, MV and CBCT) was reviewed. Appropriate changes, if any, were made to ensure treatment accuracy. Plan: Continue XRT Utilize Aquaphor liberally after treatment each day Signed by: Robe Robles 11/21/2024 11:17:16 AM
--- NOTE | 2024-11-28 16:40 | ONCRAD TMN_ITS ---
Radiation Oncology Weekly Treatment Management Patient: Chelsey Good MR#: [id number] : 1945 Attending Physician: Dr. William Dan Date of Service: 11/28/2024 Referring Physician(s) : Diagnosis: C44.01 - Basal cell carcinoma of skin of lip, Diagnosed 08/08/2024 (Active) C44.311 - Basal cell carcinoma of skin of nose, Diagnosed 08/08/2024 (Active) C44.319 - Basal cell carcinoma of skin of other parts of face, Diagnosed 08/08/2024 (Active) Radiotherapy to date: Course: Nose 2024, Treatment Site: Nose 6E 40Gy, Ref. ID: [id number], Energy: 6E, Dose/Fx (cGy): 400, #Fx: , Dose Correction (cGy): 0, Total Dose Delivered (cGy): 3,600, Start Date: 11/16/2024, Elapsed Days: 12 Reason for visit: The patient is being seen today as part of their regularly scheduled weekly on treatment visits to assess for acute toxicities from radiotherapy. Review of Systems: Some bleeding over tip and inside nose. Can see lesion shrinking. Vital Signs: Performed on 11/28/2024 10:30 AM BMI - 28.31 kg/m2 (high), Height - 66 in, Weight - 175.4 lbs, Temperature - 97.9 f, Pulse - 97 /min, Respiration - 18 /min, O2 Sat - 98 %, Pain - 0, Fatigue - 0 and BP - 185/ 100 mm(hg)(high). Physical Exam: Erythema over tip of nose. Some stable crusting over tip. Underyling erythema with no visible lesion. Imaging: Radiation therapy imaging related to accurate target localization (i.e. KV, MV and CBCT) was reviewed. Appropriate changes, if any, were made to ensure treatment accuracy. Plan: Good tolerance and response to treatment. Continue as planned. Signed by: Dr. William Dan 11/28/2024 4:39:45 PM
--- NOTE | 2024-11-29 13:27 | N.ONRD TS_ITS ---
Radiation Oncology Treatment Summary Patient: Chelsey Good MR#: [id number] : 1945 Age: 79 Sex: Female Dictated by: Dr. William Dan Date of Service: 11/29/2024 Referring Physician(s) : Diagnosis: C44.01 - Basal cell carcinoma of skin of lip, Diagnosed 08/08/2024 (Active) C44.311 - Basal cell carcinoma of skin of nose, Diagnosed 08/08/2024 (Active) C44.319 - Basal cell carcinoma of skin of other parts of face, Diagnosed 08/08/2024 (Active) Radiotherapy to Date: Course: Nose 2024, Treatment Site: Nose 6E 40Gy, Ref. ID: [id number], Energy: 6E, Dose/Fx (cGy): 400, #Fx: / , Dose Correction (cGy): 0, Total Dose Delivered (cGy): 4,000, Start Date: 11/16/2024, End Date: 11/29/2024, Elapsed Days: 13 Clinical Summary: The patient tolerated RT well. She did develop brisk erythema over nose, crusting and some bleeding over tip of nose and inside nose. Aquaphor and sunblock was advised. Plan: End of treatment today. Continue on the above medication until the skin reaction resolves. Follow up in two weeks. Signed by: Dr. William Dan>11/29/2024 1:26:28 PM <<Signature on File>>
== END 2024-12-06 23:59 | disposition home or self-care (01) ==
PROVIDERS: PCP Nurse Practitioner Family; Visit Provider Radiology Radiation Oncology
DX: K74.60 Unspecified cirrhosis of liver (principal); D69.6 Thrombocytopenia, unspecified; K80.20 Calculus of gallbladder without cholecystitis without obstruction; K44.9 Diaphragmatic hernia without obstruction or gangrene; K76.89 Other specified diseases of liver; R16.1 Splenomegaly, not elsewhere classified; I86.8 Varicose veins of other specified sites
CPT/HCPCS: 77280; 77290; 77295; 77300; 77334; 77336; 77412; 99024

== ENCOUNTER 2025-03-06 09:19 | Oncology outpatient (recurring) (ONCR) | payer MEDICARE, SELFPAY ==
[2025-03-06 10:09] LABS: Hematocrit 40.1 % (36-47); Hemoglobin 13.20 g/dL (11.27-16.99); Mean Corpuscular HGB Conc 32.9 g/dL (30-55); Mean Corpuscular Hemoglobin 28.8 pg (27-33); Mean Corpuscular Volume 87.6 fl (85-98); Nucleated Red Blood Cells % 0 %; Platelet Count 72 10^3/cmm (157-399); Red Blood Count 4.58 10^6/uL (3.85-5.65); White Blood Count 3.31 10^3/uL (3.29-11.43)
[2025-03-06 10:43] LABS: Alanine Aminotransferase 21 U/L (0-33); Albumin Level 3.6 g/dL (3.5-5.2); Alkaline Phosphatase 101 U/L (35-105); Anion Gap 13.8 (5-19); Aspartate Amino Transferase 47 U/L (0-32); Blood Urea Nitrogen 8 mg/dL (8-23); Calcium 8.9 mg/dL (8.5-10.5); Carbon Dioxide 25 mmol/L (22-29); Chloride 105 mmol/L (98-107); Creatinine Clr Calc Pharmacy 59.7287; Globulin 4.3 g/dL (1.3-4.6); Glucose 104 mg/dL (65-115); Osmolality Calculated 289 mOsm/kg (285-295); Potassium 3.8 mmol/L (3.5-5.1); Sodium 140 mmol/L (136-145); Thyroid Stimulating Hormone 1.84 uIU/mL (0.27-4.20); Total Protein 7.9 g/dL (6.6-8.7)
[2025-03-07 04:29] LABS: PROTEIN, TOTAL 7.8 g/dL (6.1-8.1)
[2025-03-07 17:45] LABS: ALPHA 1 GLOBULIN 0.3 g/dL (0.2-0.3); ALPHA 2 GLOBULIN 0.5 g/dL (0.5-0.9); BETA 1 GLOBULIN 0.5 g/dL (0.4-0.6); BETA 2 GLOBULIN 0.6 g/dL (0.2-0.5)
== END 2025-03-08 23:59 | disposition home or self-care (01) ==
PROVIDERS: Internal Medicine Medical Oncology; PCP Nurse Practitioner Family; Visit Provider Radiology Radiation Oncology
DX: D69.6 Thrombocytopenia, unspecified (principal); R03.0 Elevated blood-pressure reading, without diagnosis of hypertension; I10 Essential (primary) hypertension; D70.9 Neutropenia, unspecified; K74.60 Unspecified cirrhosis of liver; R16.1 Splenomegaly, not elsewhere classified
CPT/HCPCS: 36415; 80053; 82746; 84155; 84165; 84443; 85025; 86334; 99214

== ENCOUNTER → 2025-07-17 10:30 | Outpatient (BNVA) | payer MEDICARE, SELFPAY | PROVIDERS: Visit Provider Nurse Practitioner Family | DX: C44.311 Basal cell carcinoma of skin of nose (principal); C44.319 Basal cell carcinoma of skin of other parts of face; L85.8 Other specified epidermal thickening; L81.4 Other melanin hyperpigmentation; L57.8 Other skin changes due to chronic exposure to nonionizing radiation; D48.5 Neoplasm of uncertain behavior of skin | CPT/HCPCS: 11102; 99214 ==